=== PATIENT | female | born 1970 | race African-American/Black ===

== ENCOUNTER 2016-06-02 06:58 | Emergency (ER) | payer MEDICAID ==
[~2016-06-02] VITALS: Ht 167.6 cm; Wt 96.0 kg
[~2016-06-02 06:58] MED LIST: AMLODIPINE; IBUPROFEN
[2016-06-02] MEDS ORDERED: MORPHINE SULFATE 4 MG/ML CPJ (NOT FOR IM USE) IV STA (07:12)
[2016-06-02] MEDS ORDERED: KETOROLAC 30MG/ML VIAL IV STA (07:12)
[2016-06-02] MEDS ORDERED: SODIUM CHLORIDE 0.9% 1,000 ML IV ONE (07:12)
[2016-06-02] MEDS ORDERED: ONDANSETRON HCL 4MG/2ML VIAL IV STA (07:12)
[2016-06-02 07:38] LABS: BASOPHILS % 0.4 % (0.0-2.0); EOSINOPHILS % 0.1 % (0.0-5.0); HEMATOCRIT. 42.2 % (36.0-48.0); HEMOGLOBIN. 13.9 g/dL (12.0-16.0); LYMPHOCYTES % 19.6 % (20.0-50.0); MEAN CORPUSCULAR HEMOGLOBIN 26.9 pg (28.0-32.0); MEAN CORPUSCULAR HGB CONC 32.8 g/dL (31.0-37.0); MEAN CORPUSCULAR VOLUME 81.9 fL (81.0-99.0); MEAN PLATELET VOLUME 7.9 fl (7.4-10.4); MONOCYTES % 7.9 % (2.0-8.0); PLATELET 283 x1000/uL (130-400); RED BLOOD CELL COUNT 5.15 mill/uL (4.2-5.4); RED CELL DISTRIBUTION WIDTH 17.2 % (11.6-14.6); WHITE BLOOD COUNT 6.7 x1000/uL (4.5-11.0)
[2016-06-02 07:47] LABS: PROTHROMBIN TIME 10.6 sec
[2016-06-02 07:48] LABS: ALBUMIN 3.8 g/dL (3.4-5.0); ANION GAP 12; CALCIUM 8.9 mg/dL (8.5-10.1); CARBON DIOXIDE 28 mEq/L (21-32); CHLORIDE 100 mEq/L (98-107); INDEX HEMOLYSI 1 (1-3); INDEX ICTERIC 1 (1-4); INDEX LIPEMIC 1 (1-3); LIPASE 169 IU/L (73-393); UREA NITROGEN BLOOD 8 mg/dL (7-21)
[2016-06-02 07:50] LABS: ALANINE AMINOTRANSFERASE 23 IU/L (13-61); URIC ACID 2.7 mg/dL (2.6-7.2)
[2016-06-02 07:55] LABS: NT PRO B-TYPE NATRIURETIC PEP 454 pg/mL (5-125); TROPONIN I < 0.02 ng/mL (0.00-0.04); eGFR > 60 mL/min (>60)
[2016-06-02 07:58] LABS: GLUCOSE URINE NEGATIVE (NEGATIVE); KETONES URINE TRACE (NEGATIVE); LEUKOCYTE ESTERASE URINE NEGATIVE (NEGATIVE); NITRITE URINE NEGATIVE (NEGATIVE); OCCULT BLOOD URINE 3+ (NEGATIVE); PH URINE 7.5 (4.5-8.0); PROTEIN URINE TRACE (NEGATIVE); SPECIFIC GRAVITY URINE 1.018 (1.005-1.030)
[2016-06-02 08:01] LABS: CLARITY URINE CLOUDY (CLEAR); COLOR URINE YELLOW (YELLOW)
[2016-06-02 08:13] LABS: BACTERIA URINE NONE SEEN; MUCUS URINE TRACE /lpf (< = 2+); RBC URINE 0-2 /hpf (0-2); SQUAMOUS EPITHELIAL CELL URINE FEW /lpf (RARE/1+); WBC URINE 25-50 /hpf (0-2)
[2016-06-02] MEDS ORDERED: POTASSIUM CHLORIDE 20MEQ TABLET SR PO ONE (12:00)
[2016-06-02 12:30] VITALS: BP 141/81
== END 2016-06-02 13:02 | disposition home or self-care (01) ==
LOC: ER 07:05
DX: N20.2 Calculus of kidney with calculus of ureter (principal); N39.0 Urinary tract infection, site not specified; I10 Essential (primary) hypertension; K21.9 Gastro-esophageal reflux disease without esophagitis; Z90.49 Acquired absence of other specified parts of digestive tract
CPT/HCPCS: 36415; 71010; 74176; 76830; 76856; 80053; 81001; 83690; 83880; 84484; 84550; 85025; 85610; 87086; 93005; 96374; 96375; 99285; J1885; J2270; J2405; J7030; Z7610

== ENCOUNTER 2022-03-18 14:46 | Emergency (ER) | payer MEDICAID, OTHER ==
[~2022-03-18] VITALS: Ht 167.6 cm; Wt 79.0 kg
[2022-03-18 15:40] VITALS: BP 162/81
[2022-03-18] MEDS ORDERED: IBUPROFEN 400MG TABLET PO ONE (19:15)
[2022-03-18] MEDS ORDERED: ACETAMINOPHEN 325MG TABLET PO ONE (19:15)
[2022-03-18] MEDS ORDERED: KETOROLAC 60MG/2ML VIAL IM ONE (21:00)
== END 2022-03-18 22:01 | disposition home or self-care (01) ==
LOC: ER 14:46
DX: M25.562 Pain in left knee (principal); I10 Essential (primary) hypertension; Z90.49 Acquired absence of other specified parts of digestive tract; W10.9XXA Fall (on) (from) unspecified stairs and steps, initial encounter; Y93.89 Activity, other specified; Y92.89 Other specified places as the place of occurrence of the external cause; Y99.8 Other external cause status
CPT/HCPCS: 73562; 73590; 73610; 73620; 96372; 99284; J1885

== ENCOUNTER 2023-10-15 21:48 | Emergency (ER) | payer MEDICAID ==
[~2023-10-15] VITALS: Ht 167.6 cm; Wt 115.0 kg
[2023-10-15 21:49] VITALS: TEMP 98; O2SAT 99
[2023-10-15 22:30] VITALS: BP 154/105; PULSE 99; RESP 13
[2023-10-16 00:01] LABS: BASOPHILS % 0.6 % (0.0-2.0); EOSINOPHILS % 0.9 % (0.0-5.0); LYMPHOCYTES % 37.9 % (20.0-50.0); MEAN CORPUSCULAR HEMOGLOBIN 27.8 pg (28.0-32.0); MEAN CORPUSCULAR HGB CONC 31.9 g/dL (31.0-37.0); MEAN CORPUSCULAR VOLUME 87.3 fL (81.0-99.0); MEAN PLATELET VOLUME 8.8 fl (7.4-10.4); MONOCYTES % 6.9 % (2.0-8.0); NEUTROPHILS % 53.7 % (40.0-76.0); PLATELET 283 x1000/uL (130-400); RED BLOOD CELL COUNT 5.04 mill/uL (4.2-5.4); RED CELL DISTRIBUTION WIDTH 16.4 % (11.6-14.6); WHITE BLOOD COUNT 4.9 x1000/uL (4.5-11.0)
[2023-10-16 00:12] LABS: INR 0.9; PARTIAL THROMBOPLASTIN TIME 25.9 sec (23.4-31.0); PROTHROMBIN TIME 10.6 sec (9.6-11.0)
[2023-10-16 00:31] LABS: ETHANOL BLOOD < 10 mg/dL (<10)
[2023-10-16 00:35] LABS: CHLORIDE 109 mEq/L (98-107); POTASSIUM 3.3 mEq/L (3.5-5.1); SODIUM 141 mEq/L (136-145)
[2023-10-16 00:36] LABS: CARBON DIOXIDE 22 mEq/L (21-32)
[2023-10-16 00:38] LABS: TROPONIN I HIGH SENSITIVITY 50 ng/L (3.0-34)
[2023-10-16 00:41] LABS: CREATININE 0.8 mg/dL (0.6-1.0); GLUCOSE 92 mg/dL (70-105); UREA NITROGEN BLOOD 10 mg/dL (9-23)
[2023-10-16] MEDS: POTASSIUM CHLORIDE 20MEQ/PACKET PO NR (01:00)
[2023-10-16] MEDS: ASPIRIN 325MG EC TABLET PO NR (01:00)
[2023-10-16] MEDS: ENOXAPARIN 100MG/ML SYR SUBCUT NR (01:00)
[2023-10-16 01:04] LABS: CALCIUM 9.3 mg/dL (8.7-10.4)
[2023-10-16 01:38] LABS: ALANINE AMINOTRANSFERASE 52 IU/L (10-49); ALBUMIN 4.4 g/dL (3.2-4.8); ASPARTATE AMINOTRANSFERASE 38 IU/L (<34); BILIRUBIN DIRECT 0.2 mg/dL (<=3.0); BILIRUBIN TOTAL 0.6 mg/dL (0.1-1.0); PROTEIN TOTAL 7.3 g/dL (6.0-8.3)
== END 2023-10-16 01:35 | disposition left against medical advice (07) ==
LOC: ER 21:48
DX: R06.02 Shortness of breath (principal); R79.89 Other specified abnormal findings of blood chemistry; D64.9 Anemia, unspecified; I10 Essential (primary) hypertension; Z90.49 Acquired absence of other specified parts of digestive tract; Z87.891 Personal history of nicotine dependence
CPT/HCPCS: 36415; 71045; 80048; 80076; 80320; 83880; 84484; 85025; 93005; 99285; G0480

== ENCOUNTER 2025-02-21 14:58 | Inpatient (IN) | payer MEDICAID ==
[~2025-02-21] VITALS: Ht 170.2 cm; Wt 81.3 kg
[2025-02-21] VITALS (17 sets, daily range): BP systolic 44–131; BP diastolic 17–106; PULSE 110–140; RESP 18–31; TEMP 36.9; O2SAT 35–100
[2025-02-21] MEDS: IPRATROPIUM BROMIDE (0.02%) 0.5MG/2.5ML NEB HHN SCH ×2 (02:30→16:20)
[~2025-02-21 14:58] MED LIST changes: +ALBU18HF2 IH; +ALBU90AE3 NEB; -AMLODIPINE; +CARV6.2548 MT; +CLOP75TA33 PO; +DOCU-422 PO; +FURO80TA3 PO; -IBUPROFEN; +METH4TAB95 MT; +SACU1TAB7 PO; +SPIR25TA PO
[2025-02-21] MEDS: CEFTRIAXONE 1GM/50ML 50 ML IV ONE (15:49)
[2025-02-21] MEDS: ALBUTEROL (0.083%) 2.5MG/3ML NEB HHN SCH (16:17)
[2025-02-21] MEDS: AZITHROMYCIN 500MG/250ML 250 ML IV ONE (16:18)
[2025-02-21 16:30] LABS: BASOPHILS % 0.5 % (0.0-2.0); EOSINOPHILS % 0.2 % (0.0-5.0); HEMATOCRIT. 40.3 % (36.0-48.0); HEMOGLOBIN. 12.8 g/dL (12.0-16.0); LYMPHOCYTES % 26.3 % (20.0-50.0); MEAN PLATELET VOLUME 9.0 fl (7.4-10.4); MONOCYTES % 3.6 % (2.0-8.0); NEUTROPHILS % 69.4 % (40.0-76.0); PLATELET 227 x1000/uL (130-400); RED BLOOD CELL COUNT 4.47 mill/uL (4.2-5.4); RED CELL DISTRIBUTION WIDTH 18.3 % (11.6-14.6)
[2025-02-21 16:43] LABS: INR 1.2
[2025-02-21 16:46] LABS: CREATININE 0.9 mg/dL (0.6-1.0); UREA NITROGEN BLOOD 21 mg/dL (9-23)
[2025-02-21 16:47] LABS: ASPARTATE AMINOTRANSFERASE 40 IU/L (<34); ETHANOL BLOOD < 10 mg/dL (<10); PROTEIN TOTAL 7.1 g/dL (6.0-8.3)
[2025-02-21 16:48] LABS: BILIRUBIN DIRECT 2.2 mg/dL (<=3.0); BILIRUBIN TOTAL 3.9 mg/dL (0.1-1.0)
[2025-02-21 16:49] LABS: TROPONIN I HIGH SENSITIVITY 109 ng/L (3.0-34)
[2025-02-21 16:53] LABS: HCG SCREEN NEGATIVE
[2025-02-21 17:40] LABS: BG BASE EXCESS -19.3 mmol/L (-2.0-3.0); BG CARBOXYHEMOGLOBIN 1.2 % (0.5-1.5); BG DEOXYHEMOGLOBIN 0.7 % (0.0-5.0); BG FRACTION INSPIRED OXYGEN 100; BG HCO3 ACT 10.5 mmol/L (21.0-28.0); BG METHEMOGLOBIN 0.3 % (0.5-1.5); BG OXYGEN SATURATION 99.3 % (94.0-98.0); BG OXYHEMOGLOBIN 97.8 % (94.0-98.0); BG PCO2 39.1 mmHg (32.0-45.0); BG PEEP (cmH2O) 5.0 cmH2O; BG PH 7.047 (7.350-7.450); BG PO2 221.6 mmHg (83.0-108.0); BG SAMPLE SITE RIGHT RADIAL; BG TIDAL VOLUME(mL) 450.0 mL; BG TOTAL HEMOGLOBIN 13.8 g/dL (12.0-16.0); BG VENT MODE VENT - AC; BG VENT RATE 14.0 set
[2025-02-21] MEDS ORDERED: ACETAMINOPHEN 325MG TABLET PO PRN (17:45)
[2025-02-21] MEDS ORDERED: MAGNESIUM/ALUMINUM HYDROXIDE/SIMETHICONE 30ML UDC PO PRN (17:45)
[2025-02-21] MEDS ORDERED: CLONIDINE 0.1MG TABLET PO PRN (17:45)
[2025-02-21] MEDS ORDERED: ONDANSETRON HCL 4MG/2ML INJ IV PRN (17:45)
[2025-02-21] MEDS ORDERED: HYDROCODONE/ACETAMINOPHEN 5/325MG TABLET PO PRN (17:54)
[2025-02-21] MEDS ORDERED: FUROSEMIDE 40MG/4ML VIAL IVP SCH (17:57)
[2025-02-21] MEDS ORDERED: LISINOPRIL 10MG TABLET PO SCH (18:00)
[2025-02-21] MEDS ORDERED: IPRATROPIUM/ALBUTEROL 0.5-3(2.5)MG/3ML NEB NEB SCH (18:00)
[2025-02-21] MEDS ORDERED: DEXT 5%/0.45% NACL 1000ML 1,000 ML IV SCH (18:15)
[2025-02-21] MEDS ORDERED: IPRATROPIUM BROMIDE (0.02%) 0.5MG/2.5ML NEB HHN PRN (18:15)
[2025-02-21] MEDS ORDERED: PROPOFOL 10MG/ML 100ML 100 ML IV PRN (18:15)
[2025-02-21] MEDS: NOREPINEPHRINE 8MG/250ML PMX 250 ML IV ONE (18:17)
[2025-02-21] MEDS: SODIUM BICARBONATE 8.4% 50MEQ/50ML SYR IV SCH (18:17)
[2025-02-21] MEDS ORDERED: ACETAMINOPHEN 650MG SUPP PR PRN (18:30)
[2025-02-21] MEDS ORDERED: BLOOD SUGAR DIAGNOSTIC STRIP TEST SCH (19:30)
[2025-02-21] MEDS ORDERED: INSULIN LISPRO 100 UNITS/ML SUBCUT SCH (19:30)
[2025-02-21] MEDS: SODIUM CHLORIDE 0.9% 500 ML IV ONE (19:44)
[2025-02-21] MEDS ORDERED: VASOPRESSIN 20 UNIT in SODIUM CHLORIDE 0.9% 99 ML IV PRN (19:45)
[2025-02-21] MEDS: SODIUM BICARBONATE 100 MEQ in DEXTROSE 5% WATER 900 ML IV SCH (19:46)
[2025-02-21] MEDS ORDERED: ZOLPIDEM TARTRATE 5MG TABLET PO PRN (20:00)
[2025-02-21] MEDS: VASOPRESSIN 20 UNIT in SODIUM CHLORIDE 0.9% 99 ML IV PRN (20:32)
[2025-02-21 20:48] LABS: BG BASE EXCESS -14.0 mmol/L (-2.0-3.0); BG CARBOXYHEMOGLOBIN 0.6 % (0.5-1.5); BG DEOXYHEMOGLOBIN 0.3 % (0.0-5.0); BG FRACTION INSPIRED OXYGEN 100; BG HCO3 ACT 12.9 mmol/L (21.0-28.0); BG METHEMOGLOBIN 0.1 % (0.5-1.5); BG OXYGEN SATURATION 99.7 % (94.0-98.0); BG OXYHEMOGLOBIN 99.0 % (94.0-98.0); BG PCO2 33.5 mmHg (32.0-45.0); BG PEEP (cmH2O) 5.0 cmH2O; BG PH 7.203 (7.350-7.450); BG PO2 438.9 mmHg (83.0-108.0); BG SAMPLE SITE RIGHT FEMORAL; BG TIDAL VOLUME(mL) 450.0 mL; BG TOTAL HEMOGLOBIN 14.3 g/dL (12.0-16.0); BG VENT MODE VENT - AC; BG VENT RATE 20.0 set
[2025-02-21] MEDS ORDERED: PHENYLEPHRINE 50MG/250ML PMX 250 ML IV PRN (22:30)
[2025-02-21] MEDS: DEXTROSE 50% WATER 50ML SYRINGE IV PRN (23:10)
[2025-02-21] MEDS: PHENYLEPHRINE 50MG/250ML PMX 250 ML IV PRN (23:11)
[2025-02-21] MEDS: NOREPINEPHRINE 8MG/250ML PMX 250 ML IV PRN (23:25)
[2025-02-21] MEDS: INSULIN LISPRO 100 UNITS/ML SUBCUT SCH (23:30)
[2025-02-21] MEDS ORDERED: FENTANYL 2500MCG/250ML PMX 250 ML IV PRN (23:45)
[2025-02-21] MEDS: MORPHINE SULFATE 2 MG/ML INJ (NOT FOR IM USE) IV NR (23:49)
[2025-02-21] MEDS: DEXT 10% WATER 1,000 ML IV SCH (23:50)
[2025-02-21] MEDS: SODIUM BICARBONATE 8.4% 50MEQ/50ML SYR IV NR (23:51)
[2025-02-21] MEDS: BLOOD SUGAR DIAGNOSTIC STRIP TEST SCH (23:51)
[2025-02-22] VITALS (123 sets, daily range): BP systolic 34–148; BP diastolic 10–121; PULSE 75–141; RESP 0–61; TEMP 36.4–38.1; O2SAT 81–92
[2025-02-22] MEDS: MIDAZOLAM 100MG/100ML PMX 100 ML IV PRN (00:11)
[2025-02-22] MEDS: FENTANYL IV PRN (00:12)
[2025-02-22 01:57] LABS: BG BASE EXCESS -7.4 mmol/L (-2.0-3.0); BG CARBOXYHEMOGLOBIN 1.2 % (0.5-1.5); BG DEOXYHEMOGLOBIN 8.6 % (0.0-5.0); BG FRACTION INSPIRED OXYGEN 40; BG HCO3 ACT 18.3 mmol/L (21.0-28.0); BG METHEMOGLOBIN 0.2 % (0.5-1.5); BG OXYGEN SATURATION 91.3 % (94.0-98.0); BG OXYHEMOGLOBIN 90.0 % (94.0-98.0); BG PCO2 37.8 mmHg (32.0-45.0); BG PEEP (cmH2O) 5.0 cmH2O; BG PH 7.303 (7.350-7.450); BG PO2 65.0 mmHg (83.0-108.0); BG SAMPLE SITE RIGHT FEMORAL; BG TIDAL VOLUME(mL) 450.0 mL; BG TOTAL HEMOGLOBIN 15.0 g/dL (12.0-16.0); BG VENT MODE VENT - AC; BG VENT RATE 16.0 set
[2025-02-22] MEDS ORDERED: DOPAMINE 800MG PREMIX (DOUBLE) 250 ML IV ONE (03:47)
[2025-02-22] MEDS: DOPAMINE 800MG PREMIX (DOUBLE) 250 ML IV PRN (04:11)
[2025-02-22] MEDS ORDERED: DOPAMINE 400 MG PREMIX 250 ML IV PRN (04:15)
[2025-02-22 06:43] LABS: TROPONIN I HIGH SENSITIVITY 2574 ng/L (3.0-34)
[2025-02-22] MEDS: METHYLPREDNISOLONE SOD SUCC 40MG/ML (ACT-O-VIAL) IV SCH (06:48)
[2025-02-22] MEDS ORDERED: LIDOCAINE HCL 1% 10 MG/ML 10ML VIAL ONE (07:20)
[2025-02-22] MEDS ORDERED: NALOXONE HCL 0.4MG/ML VIAL IV PRN (08:00)
[2025-02-22] MEDS: SPIRONOLACTONE 25MG TABLET PO SCH (08:59)
[2025-02-22] MEDS ORDERED: PANTOPRAZOLE SODIUM 40 MG/VIAL IV SCH (09:00)
[2025-02-22] MEDS ORDERED: CLOPIDOGREL 75MG TABLET PO SCH (09:00)
[2025-02-22] MEDS: PANTOPRAZOLE SODIUM 40 MG/VIAL IV SCH (09:00)
[2025-02-22] MEDS ORDERED: ENOXAPARIN 40MG/0.4ML SYR SUBCUT SCH (09:00)
[2025-02-22 09:44] LABS: BG BASE EXCESS -6.5 mmol/L (-2.0-3.0); BG CARBOXYHEMOGLOBIN 1.2 % (0.5-1.5); BG DEOXYHEMOGLOBIN 18.3 % (0.0-5.0); BG FRACTION INSPIRED OXYGEN 80; BG HCO3 ACT 23.4 mmol/L (21.0-28.0); BG METHEMOGLOBIN 0.1 % (0.5-1.5); BG OXYGEN SATURATION 81.5 % (94.0-98.0); BG OXYHEMOGLOBIN 80.4 % (94.0-98.0); BG PCO2 65.5 mmHg (32.0-45.0); BG PEEP (cmH2O) 5.0 cmH2O; BG PH 7.170 (7.350-7.450); BG PO2 56.8 mmHg (83.0-108.0); BG SAMPLE SITE RIGHT RADIAL; BG TIDAL VOLUME(mL) 450.0 mL; BG TOTAL HEMOGLOBIN 15.6 g/dL (12.0-16.0); BG VENT MODE VENT - AC; BG VENT RATE 16.0 set
[2025-02-22] MEDS: ENOXAPARIN 80MG/0.8ML SYR SUBCUT SCH (10:07)
[2025-02-22] MEDS: EPINEPHRINE 10 MG in SODIUM CHLORIDE 0.9% 250 ML IV PRN (10:31)
[2025-02-22 11:32] LABS: PROTEIN TOTAL 5.9 g/dL (6.0-8.3); UREA NITROGEN BLOOD 31 mg/dL (9-23)
[2025-02-22 11:33] LABS: BILIRUBIN DIRECT 3.0 mg/dL (<=3.0); PHOSPHORUS 6.5 mg/dL (2.5-4.9)
[2025-02-22 11:34] LABS: BILIRUBIN TOTAL 4.3 mg/dL (0.1-1.0)
[2025-02-22 11:38] LABS: HEMATOCRIT. 46.0 % (36.0-48.0); HEMOGLOBIN. 14.3 g/dL (12.0-16.0); MEAN PLATELET VOLUME 9.6 fl (7.4-10.4); RED BLOOD CELL COUNT 4.88 mill/uL (4.2-5.4); RED CELL DISTRIBUTION WIDTH 18.5 % (11.6-14.6)
[2025-02-22 11:39] LABS: TROPONIN I HIGH SENSITIVITY 2856 ng/L (3.0-34)
[2025-02-22 12:02] LABS: CREATININE 1.6 mg/dL (0.6-1.0)
[2025-02-22] MEDS: EPINEPHRINE 20 MG in SODIUM CHLORIDE 0.9% 480 ML IV PRN (12:22)
[2025-02-22 12:23] LABS: CLARITY URINE TURBID (CLEAR); COLOR URINE DARK YELLOW (YELLOW); GLUCOSE URINE 1+ (NEGATIVE); KETONES URINE NEGATIVE (NEGATIVE); LEUKOCYTE ESTERASE URINE 2+ (NEGATIVE); NITRITE URINE NEGATIVE (NEGATIVE); OCCULT BLOOD URINE 2+ (NEGATIVE); PH URINE 7.5 (4.5-8.0); PROTEIN URINE 4+ (NEGATIVE); SPECIFIC GRAVITY URINE 1.028 (1.005-1.030); UROBILINOGEN URINE 1.0 E.U./dL (0.2-1.0)
[2025-02-22] MEDS: ACETAMINOPHEN 650MG/20.3ML UDC NG PRN (12:32)
[2025-02-22 12:34] LABS: ASPARTATE AMINOTRANSFERASE 9043 IU/L (<34)
[2025-02-22 12:41] LABS: INR > 10.0
[2025-02-22 12:44] LABS: PLATELET 144 x1000/uL (130-400)
[2025-02-22 12:50] LABS: BAND% 8.0 % (1.0-6.0); LYMPHOCYTES % MANUAL 5.0 % (20.0-60.0); MONOCYTES % MANUAL 6.0 % (2.0-8.0); NEUTROPHILS % MANUAL 81.0 % (45.0-75.0); NUCLEATED RED BLOOD CELLS 2 /100 WBC; PLATELET ESTIMATE NORMAL
[2025-02-22 13:01] LABS: BG BASE EXCESS -15.6 mmol/L (-2.0-3.0); BG CARBOXYHEMOGLOBIN 0.7 % (0.5-1.5); BG DEOXYHEMOGLOBIN 20.0 % (0.0-5.0); BG FRACTION INSPIRED OXYGEN 100; BG HCO3 ACT 13.9 mmol/L (21.0-28.0); BG METHEMOGLOBIN 0.1 % (0.5-1.5); BG OXYGEN SATURATION 79.8 % (94.0-98.0); BG OXYHEMOGLOBIN 79.2 % (94.0-98.0); BG PCO2 45.7 mmHg (32.0-45.0); BG PEEP (cmH2O) 5.0 cmH2O; BG PH 7.100 (7.350-7.450); BG PO2 59.3 mmHg (83.0-108.0); BG SAMPLE SITE LEFT RADIAL; BG TIDAL VOLUME(mL) 450.0 mL; BG TOTAL HEMOGLOBIN 15.2 g/dL (12.0-16.0); BG VENT MODE VENT - AC; BG VENT RATE 24.0 set
[2025-02-22 13:08] LABS: *AMPHETAMINES SCREEN URINE NEGATIVE (NEGATIVE); *BARBITURATES SCREEN URINE NEGATIVE (NEGATIVE); *BENZODIAZEPINES SCREEN URINE PRESUMPTIVE POSITIVE (NEGATIVE); *COCAINE SCREEN URINE NEGATIVE (NEGATIVE); METHADONE URINE SCREEN NEGATIVE (NEGATIVE); OPIATES URINE SCREEN NEGATIVE (NEGATIVE)
[2025-02-22 13:09] LABS: CANNABINOID URINE SCREEN PRESUMPTIVE POSITIVE (NEGATIVE); ECSTASY MDMA SCREEN URINE NEGATIVE (NEGATIVE); PHENCYCLIDINE URINE SCREEN NEGATIVE (NEGATIVE)
[2025-02-22 13:21] LABS: SQUAMOUS EPITHELIAL CELL URINE 1+ /lpf (RARE/1+); WBC URINE 50-100 /hpf (0-2)
[2025-02-22 13:22] LABS: RBC URINE 15-25 /hpf (0-2)
[2025-02-22 13:23] LABS: BACTERIA URINE 3+
[2025-02-22] MEDS: METHYLPREDNISOLONE SOD SUCC 125MG/2ML (ACT-O-VIAL) IV SCH (13:26)
[2025-02-22] MEDS: SODIUM BICARBONATE 8.4% 50MEQ/50ML SYR IV NR ×2 (13:26→14:50)
[2025-02-22] MEDS: PIPERACILLIN/TAZO 3.375G/50ML 50 ML IV SCH (13:53)
[2025-02-22] MEDS: SODIUM CHLORIDE 0.9% 500 ML IV ONE (15:32)
[2025-02-22] MEDS ORDERED: CEFTRIAXONE 1GM/50ML 50 ML IV SCH (16:00)
[2025-02-22] MEDS ORDERED: PHYTONADIONE 10MG/ML INJ IV ONE (16:30)
[2025-02-22] MEDS ORDERED: PROTAMINE SULFATE 10MG/ML VIAL 25ML IV ONE (16:30)
[2025-02-22] MEDS: AZITHROMYCIN 500MG/250ML 250 ML IV SCH (17:09)
[2025-02-22] MEDS: PHYTONADIONE 5 MG in DEXTROSE 5% WATER 50 ML IV NR (17:18)
[2025-02-22] MEDS: NOREPINEPHRINE 8MG/250ML PMX 250 ML IV PRN (17:45)
[2025-02-22] MEDS ORDERED: AZITHROMYCIN 500MG/250ML 250 ML IV SCH (18:00)
[2025-02-22] MEDS: NOREPINEPHRINE 32 MG in DEXT 5% WATER 218 ML IV PRN (19:23)
[2025-02-22] MEDS: PHENYLEPHRINE 100 MG in DEXT 5% WATER 240 ML IV PRN (20:05)
[2025-02-22] MEDS ORDERED: DOXYCYCLINE 100MG/100ML 100 ML IV SCH (21:00)
[2025-02-22] MEDS ORDERED: LACTULOSE 20G/30ML UDC PO SCH (22:00)
== END 2025-02-22 20:46 | DRG 720 ==
LOC: ER 14:58 → EDBEDREQ 15:26 → CVICU 17:17 → EDBEDREQ 17:20 → EDBEDREQSVC 17:20 → EDBEDREQTM 17:20 → ENRESERV 22:28
PROVIDERS: ADMIT Internal Medicine; ATTEND Internal Medicine
PROC: 0BH17EZ Insertion of Endotracheal Airway into Trachea, Via Natural or Artificial Opening (ICD-10-PCS; principal; 2025-02-21)
PROC: 5A1945Z Respiratory Ventilation, 24-96 Consecutive Hours (ICD-10-PCS; 2025-02-21)
PROC: 5A12012 Performance of Cardiac Output, Single, Manual (ICD-10-PCS; 2025-02-22)
PROC: 05HY33Z Insertion of Infusion Device into Upper Vein, Percutaneous Approach (ICD-10-PCS; 2025-02-22)
PROC: B54NZZA Ultrasonography of Left Upper Extremity Veins, Guidance (ICD-10-PCS; 2025-02-22)
DX: A41.9 Sepsis, unspecified organism (principal); R57.0 Cardiogenic shock; K72.00 Acute and subacute hepatic failure without coma; I46.9 Cardiac arrest, cause unspecified; N17.0 Acute kidney failure with tubular necrosis; G92.8 Other toxic encephalopathy; J96.01 Acute respiratory failure with hypoxia; R65.21 Severe sepsis with septic shock; D68.9 Coagulation defect, unspecified; I13.0 Hypertensive heart and chronic kidney disease with heart failure and stage 1 through stage 4 chronic kidney disease, or unspecified chronic kidney disease; J44.1 Chronic obstructive pulmonary disease with (acute) exacerbation; F19.10 Other psychoactive substance abuse, uncomplicated; I73.9 Peripheral vascular disease, unspecified; E66.9 Obesity, unspecified; Z95.2 Presence of prosthetic heart valve; N18.4 Chronic kidney disease, stage 4 (severe); K76.0 Fatty (change of) liver, not elsewhere classified; I42.9 Cardiomyopathy, unspecified; E87.4 Mixed disorder of acid-base balance; I50.22 Chronic systolic (congestive) heart failure; E78.00 Pure hypercholesterolemia, unspecified; L98.8 Other specified disorders of the skin and subcutaneous tissue; N20.0 Calculus of kidney; I08.1 Rheumatic disorders of both mitral and tricuspid valves; F14.10 Cocaine abuse, uncomplicated; F15.10 Other stimulant abuse, uncomplicated; Z91.148 Patient's other noncompliance with medication regimen for other reason; Z90.49 Acquired absence of other specified parts of digestive tract; Z68.28 Body mass index [BMI] 28.0-28.9, adult; Z55.6 Problems related to health literacy; Z95.810 Presence of automatic (implantable) cardiac defibrillator
CPT/HCPCS: 31500; 31720; 36415; 36573; 36600; 71045; 76700; 80048; 80076; 80305; 80320; 81003; 82140; 82375; 82550; 82805; 82962; 83605; 83735; 83880; 83935; 84100; 84145; 84443; 84484; 84703; 85025; 85044; 87070; 92950; 93005; 93970; 94003; 94070; 94640; 94664; 96365; 96375; 99291; C1725; J0456; J0696; J1265; J1650; J2003; J2270; J2371; J2470; J2543; J2704; J2720; J2919; J3430; J3490; J7040; J7050; J7060; J7070; G0480